=== PATIENT | male | born 1955 | race Caucasian/White ===

== ENCOUNTER 2021-05-21 16:32 | Inpatient (IN) ==
[2021-05-21] MEDS ORDERED: *HR* LORazepam 2 MG/ML VIAL IVP ONE (21:27)
[2021-05-21] MEDS ORDERED: Naloxone 0.4 MG/ML INJ IVP PRN (22:23)
[2021-05-21] MEDS ORDERED: Ondansetron 4 MG/2 ML VIAL IVP PRN (22:23)
[2021-05-21] MEDS ORDERED: 0.9 % Sodium Chloride 1,000 ML IVC SCH (22:30)
[2021-05-21] MEDS ORDERED: *HR* Metoprolol 5 MG/5 ML VIAL IVP ONE (22:32)
[2021-05-21] MEDS: Nicotine 14 MG PATCH.TD24 TD SCH (23:25)
[2021-05-21] MEDS: Piperacillin/Tazobactam 3.375 GM in 0.9 % Sodium Chloride Mini Bag 100 ML IVPB SCH (23:26)
[2021-05-21] MEDS: Levalbuterol 1 PUFF INHALER IH SCH (23:30)
[2021-05-22] MEDS: *HR* Heparin 5,000 UNIT/ML VIAL SQ SCH ×4 (00:40→21:52)
[2021-05-22 02:40] LABS: Adenovirus Not Detected (Not Detect); Coronavirus 229E Not Detected (Not Detect); Coronavirus HKU1 Not Detected (Not Detect); Coronavirus NL63 Not Detected (Not Detect); Coronavirus OC43 Not Detected (Not Detect); Human Metapneumovirus Not Detected (Not Detect); Human Rhinovirus/Enterovirus Not Detected (Not Detect); SARS-CoV-2 Not Detected (Not Detect)
[2021-05-22 02:41] LABS: Bordetella Pertussis Not Detected (Not Detect); Chlamydophila pneumoniae Not Detected (Not Detect); Influenza A Subtype 2009 H1 Not Detected (Not Detect); Influenza B Not Detected (Not Detect); Mycoplasma pneumoniae Not Detected (Not Detect); Parainfluenza Virus 1 Not Detected (Not Detect); Parainfluenza Virus 2 Not Detected (Not Detect); Parainfluenza Virus 3 Not Detected (Not Detect); Parainfluenza Virus 4 Not Detected (Not Detect); Respiratory Syncytial Virus Not Detected (Not Detect)
[2021-05-22] MEDS ORDERED: Morphine Sulfate 2 MG/ML SYRINGE IVP ONE (03:36)
[2021-05-22] MEDS ORDERED: 0.9 % Sodium Chloride 1,000 ML IVC SCH (04:14)
[2021-05-22 05:21] LABS: Hematocrit 37.8 % (37.5-50.1); Hemoglobin 12.5 g/dL (12.9-16.9); Mean Corpuscular HGB Conc 33.1 g/dL (31.6-35.5); Mean Corpuscular Hemoglobin 33.2 pg (28.0-33.3); Mean Corpuscular Volume 100.3 fL (83.0-100.0); Platelet Count 545 K/mcL (140-400); Red Blood Count 3.77 M/mcL (4.19-5.50); Red Cell Distribution Width 12.6 % (11.5-14.5); White Blood Count 13.8 K/mcL (4.3-11.1)
[2021-05-22 05:34] LABS: C-Reactive Protein 272 mg/L (Less than 10); Lactate Dehydrogenase 305 Units/L (140-271)
[2021-05-22 05:37] LABS: BUN/Creatinine Ratio 19 (6-26); Blood Urea Nitrogen 10 mg/dL (8-23); Calcium 8.5 mg/dL (8.6-10.3); Carbon Dioxide 20 mEq/L (23-29); Chloride 107 mEq/L (98-107); Glucose 119 mg/dL (70-105); Osmolality,Calculated 294 (280-300); Potassium 3.6 mEq/L (3.5-5.1); Sodium 142 mEq/L (136-145); eGFR For African Americans > 60 (> 60); eGFR For Non-African Americans > 60 (> 60)
[2021-05-22 05:50] LABS: Ferritin 439 ng/mL (20-250)
[2021-05-22] MEDS: Piperacillin/Tazobactam 3.375 GM in 0.9 % Sodium Chloride Mini Bag 100 ML IVPB SCH ×2 (10:33→15:50)
[2021-05-22] MEDS: Azithromycin 500 MG in 0.9 % Sodium Chloride 250 ML IVPB SCH (10:34)
[2021-05-22] MEDS: modafiniL 100 MG TABLET PO SCH (10:35)
[2021-05-22] MEDS: Thiamine (B-1) 100 MG TABLET PO SCH (10:36)
[2021-05-22] MEDS: Folic Acid 1 MG TABLET PO SCH (10:36)
[2021-05-22] MEDS: OLANZapine 5 MG TAB.RAPDIS PO SCH (10:36)
[2021-05-22] MEDS: Acetaminophen 325 MG TABLET PO PRN (10:37)
[2021-05-22] MEDS: Levalbuterol 1 PUFF INHALER IH SCH ×2 (11:02→20:37)
[2021-05-22] MEDS: *HR* HYDROcodone/Acet 5/325 mg TABLET PO PRN ×2 (13:24→19:04)
[2021-05-22] MEDS: Nicotine 14 MG PATCH.TD24 TD SCH (21:49)
[2021-05-23] MEDS: *HR* HYDROcodone/Acet 5/325 mg TABLET PO PRN ×6 (00:44→21:32)
[2021-05-23] MEDS: Piperacillin/Tazobactam 3.375 GM in 0.9 % Sodium Chloride Mini Bag 100 ML IVPB SCH ×3 (00:44→16:37)
[2021-05-23] MEDS: Benzonatate 100 MG CAPSULE PO PRN (01:32)
[2021-05-23] MEDS: *HR* Heparin 5,000 UNIT/ML VIAL SQ SCH ×3 (05:19→21:20)
[2021-05-23] MEDS: Levalbuterol 1 PUFF INHALER IH SCH ×2 (07:53→20:52)
[2021-05-23 08:07] LABS: Basophils % 0.2 %; Hematocrit 32.4 % (37.5-50.1); Immature Granulocytes % 1.1 % (0-4); Lymphocytes # 1.9 K/mcL (0.6-4.6); Lymphocytes % 10.9 %; Mean Corpuscular Hemoglobin 33.1 pg (28.0-33.3); Mean Corpuscular Volume 100.3 fL (83.0-100.0); Mean Platelet Volume 9.2 fL (9.4-12.4); Monocytes # 2.1 K/mcL (0.0-1.3); Monocytes % 12.3 %; Neutrophils # 12.8 K/mcL (1.6-8.9); Platelet Count 548 K/mcL (140-400); Red Blood Count 3.23 M/mcL (4.19-5.50); Red Cell Distribution Width 12.4 % (11.5-14.5); Segmented Neutrophils % 75.5 %
[2021-05-23 08:08] LABS: Hemoglobin 10.7 g/dL (12.9-16.9)
[2021-05-23 08:52] LABS: BUN/Creatinine Ratio 30 (6-26); Blood Urea Nitrogen 13 mg/dL (8-23); Calcium 8.2 mg/dL (8.6-10.3); Carbon Dioxide 25 mEq/L (23-29); Chloride 107 mEq/L (98-107); Glucose 114 mg/dL (70-105); Osmolality,Calculated 291 (280-300); Sodium 140 mEq/L (136-145); eGFR For African Americans > 60 (> 60); eGFR For Non-African Americans > 60 (> 60)
[2021-05-23] MEDS: Azithromycin 500 MG in 0.9 % Sodium Chloride 250 ML IVPB SCH (08:58)
[2021-05-23] MEDS: Folic Acid 1 MG TABLET PO SCH (09:00)
[2021-05-23] MEDS: modafiniL 100 MG TABLET PO SCH (09:00)
[2021-05-23] MEDS: Thiamine (B-1) 100 MG TABLET PO SCH (09:00)
[2021-05-23] MEDS: OLANZapine 5 MG TAB.RAPDIS PO SCH (09:00)
[2021-05-23] MEDS: Potassium Effervescent 25 MEQ TABLET.EFF PO ONE (12:57)
[2021-05-23] MEDS: Acetaminophen 325 MG TABLET PO PRN ×2 (14:26→23:06)
[2021-05-23] MEDS: predniSONE 20 MG TABLET PO SCH (16:36)
[2021-05-23] MEDS: Budesonide/Formoterol 160/4.5 1 PUFF INH IH SCH (20:52)
[2021-05-23] MEDS ORDERED: Vancomycin 1,000 MG in 0.9 % Sodium Chloride Mini Bag 100 ML IVPB SCH (21:00)
[2021-05-23] MEDS: Nicotine 14 MG PATCH.TD24 TD SCH (21:19)
[2021-05-24] MEDS: Piperacillin/Tazobactam 3.375 GM in 0.9 % Sodium Chloride Mini Bag 100 ML IVPB SCH ×4 (00:04→23:09)
[2021-05-24] MEDS: *HR* HYDROcodone/Acet 5/325 mg TABLET PO PRN ×4 (01:39→14:13)
[2021-05-24] MEDS: Benzonatate 100 MG CAPSULE PO PRN ×3 (01:45→22:13)
[2021-05-24] MEDS: *HR* Heparin 5,000 UNIT/ML VIAL SQ SCH ×3 (05:45→21:01)
[2021-05-24] MEDS: Budesonide/Formoterol 160/4.5 1 PUFF INH IH SCH ×2 (08:20→20:26)
[2021-05-24] MEDS: Levalbuterol 1 PUFF INHALER IH SCH ×2 (08:20→20:26)
[2021-05-24] MEDS: modafiniL 100 MG TABLET PO SCH (09:17)
[2021-05-24] MEDS: Thiamine (B-1) 100 MG TABLET PO SCH (09:17)
[2021-05-24] MEDS: Folic Acid 1 MG TABLET PO SCH (09:17)
[2021-05-24] MEDS: predniSONE 20 MG TABLET PO SCH ×2 (09:17→16:38)
[2021-05-24] MEDS: OLANZapine 5 MG TAB.RAPDIS PO SCH (09:20)
[2021-05-24 10:25] LABS: Basophils % 0.2 %; Eosinophils % 0.1 %; Hematocrit 35.6 % (37.5-50.1); Hemoglobin 11.9 g/dL (12.9-16.9); Immature Granulocytes % 1.3 % (0-4); Lymphocytes # 2.8 K/mcL (0.6-4.6); Lymphocytes % 16.9 %; Mean Corpuscular HGB Conc 33.4 g/dL (31.6-35.5); Mean Corpuscular Hemoglobin 33.5 pg (28.0-33.3); Mean Corpuscular Volume 100.3 fL (83.0-100.0); Mean Platelet Volume 9.2 fL (9.4-12.4); Monocytes # 1.4 K/mcL (0.0-1.3); Monocytes % 8.7 %; Neutrophils # 11.8 K/mcL (1.6-8.9); Platelet Count 601 K/mcL (140-400); Red Blood Count 3.55 M/mcL (4.19-5.50); Red Cell Distribution Width 12.4 % (11.5-14.5); Segmented Neutrophils % 72.8 %; White Blood Count 16.2 K/mcL (4.3-11.1)
[2021-05-24 10:45] LABS: BUN/Creatinine Ratio 20 (6-26); Blood Urea Nitrogen 8 mg/dL (8-23); Calcium 8.3 mg/dL (8.6-10.3); Carbon Dioxide 26 mEq/L (23-29); Chloride 107 mEq/L (98-107); Glucose 121 mg/dL (70-105); Osmolality,Calculated 292 (280-300); Sodium 141 mEq/L (136-145); eGFR For African Americans > 60 (> 60); eGFR For Non-African Americans > 60 (> 60)
[2021-05-24] MEDS ORDERED: Potassium Effervescent 25 MEQ TABLET.EFF PO ONE (11:29)
[2021-05-24] MEDS ORDERED: Isovue-370 500 ML BOTTLE IVP ONE (12:46)
[2021-05-24] MEDS: Potassium Effervescent 25 MEQ TABLET.EFF PO ONE (14:14)
[2021-05-24] MEDS: *HR* OxyCODONE Immed Rel 5 MG TABLET PO PRN ×2 (16:38→21:00)
[2021-05-24] MEDS ORDERED: levoFLOXacin 750 MG/150 ML 750 MG/150 ML BAG IVPB SCH (19:15)
[2021-05-24] MEDS: Doxycycline 100 MG in 0.9 % Sodium Chloride Mini Bag 100 ML IVPB SCH (21:01)
[2021-05-24] MEDS: Nicotine 14 MG PATCH.TD24 TD SCH (21:01)
[2021-05-24] MEDS: MethylPREDNISolone 40 MG/ML VIAL IVP SCH (23:08)
[2021-05-24] MEDS: Melatonin 3 MG TABLET PO PRN (23:08)
[2021-05-25] MEDS: *HR* OxyCODONE Immed Rel 5 MG TABLET PO PRN ×3 (03:26→21:30)
[2021-05-25 05:10] LABS: Basophils # 0.1 K/mcL (0.0-0.2); Basophils % 0.5 %; Hematocrit 34.5 % (37.5-50.1); Hemoglobin 11.4 g/dL (12.9-16.9); Immature Granulocytes % 3.2 % (0-4); Lymphocytes # 1.7 K/mcL (0.6-4.6); Lymphocytes % 12.8 %; Mean Corpuscular Hemoglobin 33.6 pg (28.0-33.3); Mean Corpuscular Volume 101.8 fL (83.0-100.0); Monocytes # 0.5 K/mcL (0.0-1.3); Monocytes % 3.4 %; Neutrophils # 10.8 K/mcL (1.6-8.9); Platelet Count 612 K/mcL (140-400); Red Blood Count 3.39 M/mcL (4.19-5.50); Red Cell Distribution Width 12.7 % (11.5-14.5); Segmented Neutrophils % 80.1 %; White Blood Count 13.4 K/mcL (4.3-11.1)
[2021-05-25] MEDS: Benzonatate 100 MG CAPSULE PO PRN (05:28)
[2021-05-25] MEDS: *HR* Heparin 5,000 UNIT/ML VIAL SQ SCH ×3 (05:29→21:29)
[2021-05-25] MEDS: Doxycycline 100 MG in 0.9 % Sodium Chloride Mini Bag 100 ML IVPB SCH ×2 (05:29→16:14)
[2021-05-25 05:37] LABS: BUN/Creatinine Ratio 19 (6-26); Blood Urea Nitrogen 9 mg/dL (8-23); Calcium 8.4 mg/dL (8.6-10.3); Carbon Dioxide 27 mEq/L (23-29); Chloride 106 mEq/L (98-107); Glucose 145 mg/dL (70-105); Osmolality,Calculated 291 (280-300); Sodium 140 mEq/L (136-145); eGFR For African Americans > 60 (> 60); eGFR For Non-African Americans > 60 (> 60)
[2021-05-25] MEDS: Budesonide/Formoterol 160/4.5 1 PUFF INH IH SCH ×2 (08:54→20:27)
[2021-05-25] MEDS: Levalbuterol 1 PUFF INHALER IH SCH ×2 (08:54→20:27)
[2021-05-25] MEDS: Vancomycin 1,500 MG/265 ML IV.SOLN IVPB SCH (09:35)
[2021-05-25] MEDS: MethylPREDNISolone 40 MG/ML VIAL IVP SCH ×2 (10:43→16:14)
[2021-05-25] MEDS: Thiamine (B-1) 100 MG TABLET PO SCH (10:43)
[2021-05-25] MEDS: Folic Acid 1 MG TABLET PO SCH (10:43)
[2021-05-25] MEDS: Piperacillin/Tazobactam 3.375 GM in 0.9 % Sodium Chloride Mini Bag 100 ML IVPB SCH ×2 (10:43→18:05)
[2021-05-25] MEDS: OLANZapine 5 MG TAB.RAPDIS PO SCH (10:43)
[2021-05-25] MEDS: modafiniL 100 MG TABLET PO SCH (10:43)
[2021-05-25] MEDS ORDERED: Doxycycline 100 MG VIAL ONE (16:12)
[2021-05-25] MEDS: Simethicone 80 MG TAB.CHEW PO PRN (22:31)
[2021-05-26] MEDS: Vancomycin 1,500 MG/265 ML IV.SOLN IVPB SCH ×2 (00:54→09:19)
[2021-05-26] MEDS: Nicotine 14 MG PATCH.TD24 TD SCH (00:55)
[2021-05-26] MEDS: MethylPREDNISolone 40 MG/ML VIAL IVP SCH ×3 (00:55→16:24)
[2021-05-26] MEDS: Piperacillin/Tazobactam 3.375 GM in 0.9 % Sodium Chloride Mini Bag 100 ML IVPB SCH ×3 (02:29→16:24)
[2021-05-26] MEDS: *HR* OxyCODONE Immed Rel 5 MG TABLET PO PRN ×4 (02:41→20:05)
[2021-05-26] MEDS: Doxycycline 100 MG in 0.9 % Sodium Chloride Mini Bag 100 ML IVPB SCH ×2 (06:25→20:44)
[2021-05-26] MEDS: *HR* Heparin 5,000 UNIT/ML VIAL SQ SCH ×3 (06:27→20:45)
[2021-05-26] MEDS: Budesonide/Formoterol 160/4.5 1 PUFF INH IH SCH ×2 (08:45→19:53)
[2021-05-26] MEDS: Levalbuterol 1 PUFF INHALER IH SCH ×2 (08:45→19:53)
[2021-05-26] MEDS: modafiniL 100 MG TABLET PO SCH (09:15)
[2021-05-26] MEDS: Thiamine (B-1) 100 MG TABLET PO SCH (09:15)
[2021-05-26] MEDS: Folic Acid 1 MG TABLET PO SCH (09:16)
[2021-05-26] MEDS: OLANZapine 5 MG TAB.RAPDIS PO SCH (09:16)
[2021-05-26] MEDS: Benzonatate 100 MG CAPSULE PO PRN (09:36)
[2021-05-26] MEDS: Simethicone 80 MG TAB.CHEW PO PRN (20:05)
[2021-05-26] MEDS: Melatonin 3 MG TABLET PO PRN (20:56)
[2021-05-27] MEDS: *HR* OxyCODONE Immed Rel 5 MG TABLET PO PRN ×4 (00:12→20:31)
[2021-05-27] MEDS: MethylPREDNISolone 40 MG/ML VIAL IVP SCH ×3 (00:12→17:04)
[2021-05-27] MEDS: Piperacillin/Tazobactam 3.375 GM in 0.9 % Sodium Chloride Mini Bag 100 ML IVPB SCH ×3 (00:12→17:03)
[2021-05-27] MEDS: Nicotine 14 MG PATCH.TD24 TD SCH (00:19)
[2021-05-27 02:35] LABS: Mean Corpuscular HGB Conc 33.7 g/dL (31.6-35.5)
[2021-05-27 02:36] LABS: Hematocrit 35.3 % (37.5-50.1); Hemoglobin 11.9 g/dL (12.9-16.9); Mean Corpuscular Hemoglobin 34.3 pg (28.0-33.3); Mean Corpuscular Volume 101.7 fL (83.0-100.0); Nucleated Red Blood Cells 0.1 /100 WBC (0); Platelet Count 722 K/mcL (140-400); Red Blood Count 3.47 M/mcL (4.19-5.50); Red Cell Distribution Width 13.2 % (11.5-14.5)
[2021-05-27 02:43] LABS: INR 0.9; Prothrombin Time 9.9 Seconds (9.4-12.1)
[2021-05-27 02:51] LABS: BUN/Creatinine Ratio 36 (6-26); Blood Urea Nitrogen 16 mg/dL (8-23); Calcium 8.8 mg/dL (8.6-10.3); Carbon Dioxide 29 mEq/L (23-29); Chloride 102 mEq/L (98-107); Glucose 110 mg/dL (70-105); Osmolality,Calculated 286 (280-300); Potassium 4.2 mEq/L (3.5-5.1); Sodium 137 mEq/L (136-145); eGFR For African Americans > 60 (> 60); eGFR For Non-African Americans > 60 (> 60)
[2021-05-27 02:59] LABS: Lymphocytes # 4.5 K/mcL (0.6-4.6); Monocytes # 2.8 K/mcL (0.0-1.3); Platelet Estimate Increased (Normal)
[2021-05-27 03:00] LABS: Large Platelets Present (Not Present); Reactive Lymphocytes Present (Not Present); Smudge Cells Present (Not Present)
[2021-05-27] MEDS: Doxycycline 100 MG in 0.9 % Sodium Chloride Mini Bag 100 ML IVPB SCH ×2 (05:58→20:55)
[2021-05-27] MEDS: *HR* Heparin 5,000 UNIT/ML VIAL SQ SCH ×3 (05:59→20:33)
[2021-05-27] MEDS: Budesonide/Formoterol 160/4.5 1 PUFF INH IH SCH ×2 (07:37→20:11)
[2021-05-27] MEDS: Levalbuterol 1 PUFF INHALER IH SCH ×2 (07:37→20:12)
[2021-05-27] MEDS ORDERED: *HR* Succinylcholine 200 MG/10 ML VIAL IVP ONE (10:32)
[2021-05-27] MEDS ORDERED: *HR* Rocuronium Bromide 50 MG/5 ML VIAL ONE (10:32)
[2021-05-27] MEDS ORDERED: Lidocaine -MPF 2% 5 ML VIAL ONE (10:32)
[2021-05-27] MEDS ORDERED: Ondansetron 4 MG/2 ML VIAL ONE (10:32)
[2021-05-27] MEDS: Folic Acid 1 MG TABLET PO SCH (14:52)
[2021-05-27] MEDS: Thiamine (B-1) 100 MG TABLET PO SCH (14:52)
[2021-05-27] MEDS: OLANZapine 5 MG TAB.RAPDIS PO SCH (14:52)
[2021-05-27] MEDS: modafiniL 100 MG TABLET PO SCH (14:52)
[2021-05-27] MEDS: Benzonatate 100 MG CAPSULE PO PRN ×2 (14:58→20:32)
[2021-05-27 18:07] LABS: Appearance of Body Fluid Hazy (Clear); Volume of Body Fluid 18 mL
[2021-05-27] MEDS: Simethicone 80 MG TAB.CHEW PO PRN (20:31)
[2021-05-27] MEDS: Melatonin 3 MG TABLET PO PRN (20:32)
[2021-05-28] MEDS: Nicotine 14 MG PATCH.TD24 TD SCH (00:01)
[2021-05-28] MEDS: MethylPREDNISolone 40 MG/ML VIAL IVP SCH ×2 (00:01→08:22)
[2021-05-28] MEDS: Piperacillin/Tazobactam 3.375 GM in 0.9 % Sodium Chloride Mini Bag 100 ML IVPB SCH ×3 (00:01→16:03)
[2021-05-28 01:02] LABS: Hematocrit 37.2 % (37.5-50.1); Hemoglobin 12.2 g/dL (12.9-16.9); Mean Corpuscular HGB Conc 32.8 g/dL (31.6-35.5); Mean Corpuscular Hemoglobin 33.5 pg (28.0-33.3); Mean Corpuscular Volume 102.2 fL (83.0-100.0); Nucleated Red Blood Cells 0.1 /100 WBC (0); Platelet Count 799 K/mcL (140-400); Red Blood Count 3.64 M/mcL (4.19-5.50); Red Cell Distribution Width 13.4 % (11.5-14.5)
[2021-05-28 01:15] LABS: Alanine Aminotransferase 104 Units/L (7-52); Alkaline Phosphatase 67 Units/L (34-104); Aspartate Amino Transferase 39 Units/L (13-39); BUN/Creatinine Ratio 37 (6-26); Bilirubin,Total 0.3 mg/dL (0.3-1.0); Blood Urea Nitrogen 22 mg/dL (8-23); Calcium 8.6 mg/dL (8.6-10.3); Carbon Dioxide 29 mEq/L (23-29); Chloride 104 mEq/L (98-107); Globulin 2.9 g/dL (2.4-3.5); Glucose 118 mg/dL (70-105); Osmolality,Calculated 292 (280-300); Potassium 4.5 mEq/L (3.5-5.1); Sodium 139 mEq/L (136-145); Total Protein 5.9 g/dL (6.4-8.9); eGFR For African Americans > 60 (> 60); eGFR For Non-African Americans > 60 (> 60)
[2021-05-28 01:25] LABS: Eosinophils # 0.3 K/mcL (0.0-0.6); Lymphocytes # 3.4 K/mcL (0.6-4.6); Monocytes # 2.5 K/mcL (0.0-1.3); Neutrophils # 21.8 K/mcL (1.6-8.9)
[2021-05-28 01:26] LABS: Platelet Estimate Increased (Normal); Reactive Lymphocytes Present (Not Present)
[2021-05-28] MEDS: *HR* OxyCODONE Immed Rel 5 MG TABLET PO PRN ×3 (03:21→16:03)
[2021-05-28] MEDS: Benzonatate 100 MG CAPSULE PO PRN (03:21)
[2021-05-28] MEDS: *HR* Heparin 5,000 UNIT/ML VIAL SQ SCH ×3 (06:27→20:31)
[2021-05-28] MEDS: Doxycycline 100 MG in 0.9 % Sodium Chloride Mini Bag 100 ML IVPB SCH ×2 (06:27→20:24)
[2021-05-28] MEDS: Budesonide/Formoterol 160/4.5 1 PUFF INH IH SCH ×2 (08:00→19:59)
[2021-05-28] MEDS: Levalbuterol 1 PUFF INHALER IH SCH ×2 (08:00→19:59)
[2021-05-28] MEDS: OLANZapine 5 MG TAB.RAPDIS PO SCH (08:23)
[2021-05-28] MEDS: Furosemide 20 MG TABLET PO SCH (08:23)
[2021-05-28] MEDS: Folic Acid 1 MG TABLET PO SCH (08:23)
[2021-05-28] MEDS: Thiamine (B-1) 100 MG TABLET PO SCH (08:24)
[2021-05-28] MEDS: modafiniL 100 MG TABLET PO SCH (08:24)
[2021-05-28] MEDS ORDERED: Saline Nasal Spray 44 ML BOTTLE NS PRN (18:48)
[2021-05-28] MEDS: Acetaminophen 325 MG TABLET PO PRN (18:53)
[2021-05-28] MEDS: Simethicone 80 MG TAB.CHEW PO PRN (20:31)
[2021-05-28] MEDS: Melatonin 3 MG TABLET PO PRN (20:32)
[2021-05-28] MEDS: Loratadine 10 MG TABLET PO SCH (20:34)
[2021-05-29] MEDS: Nicotine 14 MG PATCH.TD24 TD SCH (00:07)
[2021-05-29] MEDS: Piperacillin/Tazobactam 3.375 GM in 0.9 % Sodium Chloride Mini Bag 100 ML IVPB SCH ×2 (00:08→10:17)
[2021-05-29] MEDS: *HR* OxyCODONE Immed Rel 5 MG TABLET PO PRN ×2 (00:12→10:16)
[2021-05-29 05:02] VITALS: TEMP 97.8
[2021-05-29] MEDS: *HR* Heparin 5,000 UNIT/ML VIAL SQ SCH (05:21)
[2021-05-29] MEDS: Doxycycline 100 MG in 0.9 % Sodium Chloride Mini Bag 100 ML IVPB SCH (05:21)
[2021-05-29 06:16] LABS: Mean Platelet Volume 9.5 fL (9.4-12.4); Red Cell Distribution Width 13.8 % (11.5-14.5)
[2021-05-29 06:17] LABS: Hematocrit 34.5 % (37.5-50.1); Hemoglobin 11.4 g/dL (12.9-16.9); Nucleated Red Blood Cells 0.1 /100 WBC (0); Platelet Count 742 K/mcL (140-400); Red Blood Count 3.35 M/mcL (4.19-5.50); White Blood Count 27.6 K/mcL (4.3-11.1)
[2021-05-29 06:27] LABS: BUN/Creatinine Ratio 38 (6-26); Blood Urea Nitrogen 24 mg/dL (8-23); Calcium 8.6 mg/dL (8.6-10.3); Carbon Dioxide 29 mEq/L (23-29); Chloride 101 mEq/L (98-107); Glucose 77 mg/dL (70-105); Osmolality,Calculated 289 (280-300); Potassium 4.1 mEq/L (3.5-5.1); Sodium 138 mEq/L (136-145); eGFR For African Americans > 60 (> 60); eGFR For Non-African Americans > 60 (> 60)
[2021-05-29 06:39] LABS: Lymphocytes # 8.3 K/mcL (0.6-4.6); Monocytes # 4.4 K/mcL (0.0-1.3); Neutrophils # 14.4 K/mcL (1.6-8.9); Platelet Estimate Marked Increase (Normal)
[2021-05-29 08:06] VITALS: BP 130/76; PULSE 96; O2SAT 92
[2021-05-29] MEDS ORDERED: predniSONE 20 MG TABLET PO SCH (09:00)
[2021-05-29] MEDS: Levalbuterol 1 PUFF INHALER IH SCH (09:57)
[2021-05-29] MEDS: Budesonide/Formoterol 160/4.5 1 PUFF INH IH SCH (09:58)
[2021-05-29] MEDS: Loratadine 10 MG TABLET PO SCH (10:14)
[2021-05-29] MEDS: Folic Acid 1 MG TABLET PO SCH (10:16)
[2021-05-29] MEDS: Thiamine (B-1) 100 MG TABLET PO SCH (10:16)
[2021-05-29] MEDS: Furosemide 20 MG TABLET PO SCH (10:16)
[2021-05-29] MEDS: OLANZapine 5 MG TAB.RAPDIS PO SCH (10:17)
[2021-05-29] MEDS: modafiniL 100 MG TABLET PO SCH (10:17)
== END 2021-05-29 12:03 | disposition home health service (06) | DRG 720 ==
LOC: 3NENU → SUATTDRO 22:23
PROVIDERS: ADMIT Family Medicine; ATTEND Internal Medicine